=== PATIENT | male | born 1995 | race Hispanic/Latino ===

== ENCOUNTER 2019-02-22 00:06 | Emergency (ER) | payer OTHER ==
[~2019-02-22] VITALS: Ht 157.5 cm; Wt 72.7 kg
[2019-02-22] MEDS ORDERED: ACETAMINOPHEN 325 MG TAB PO ONE (02:15)
[2019-02-22 02:24] VITALS: BP 126/62
--- NOTE | 2019-02-22 06:56 | REP ---
Clinical: Trauma. Technique: AP, lateral, bilateral oblique views of the right ankle. Findings: Lateral swelling. No acute fracture or dislocation. Joint spaces and ankle mortise are intact. Impression: Lateral swelling. No fracture. Electronically Signed by Gatito Anderson MD 02/22/2019 06:47 A
== END 2019-02-22 02:37 | disposition home or self-care (01) ==
LOC: M ED 00:06
DX: S93.401A Sprain of unspecified ligament of right ankle, initial encounter (principal); X50.1XXA Overexertion from prolonged static or awkward postures, initial encounter; Y92.9 Unspecified place or not applicable; Y93.02 Activity, running; Y99.9 Unspecified external cause status